=== PATIENT | female | born 1940 | race Asian ===

== ENCOUNTER 2020-08-10 16:17 | Emergency (ER) | payer OTHER ==
[~2020-08-10] VITALS: Ht 152.4 cm; Wt 59.1 kg
[~2020-08-10 16:17] MED LIST: AMLO-257 PO; ASPI81TA39 PO; BIMA12.5OS OU; BRIM15DR8 OU; CALC1CAP22 PO; CARV12 PO; COSO10OS OU; INSU100V SQ; INSU300I SQ; LOSA50TA37 PO; MOM30 PO; MULT-1259 PO; NETA2.5D OU; PRED20 PO; SIMV10TA97 PO; VITA1TAB22 PO
[2020-08-10] MEDS ORDERED: TraMADol HCL 50 MG TABLET PO ONE (17:45)
[2020-08-10 19:17] VITALS: BP 132/71
== END 2020-08-10 19:23 | disposition home or self-care (01) ==
LOC: EMS 16:17
DX: E11.621 Type 2 diabetes mellitus with foot ulcer (principal); E78.00 Pure hypercholesterolemia, unspecified; I10 Essential (primary) hypertension; Z79.4 Long term (current) use of insulin

== ENCOUNTER 2021-04-22 13:45 | Emergency (ER) | payer OTHER ==
[~2021-04-22] VITALS: Ht 154.9 cm; Wt 59.1 kg
[~2021-04-22 13:45] MED LIST changes: -BIMA12.5OS OU; +BIMA2.5D4 OU
[2021-04-22] MEDS ORDERED: VANCOMYCIN HCL 1 GM/D5% WATER 200 ML IV ONE (14:00)
[2021-04-22] MEDS ORDERED: ONDANSETRON HCL 4 MG/2 ML VIAL IVP ONE (14:00)
[2021-04-22] MEDS ORDERED: MORPHINE SULFATE 4 MG/ML SYRINGE IVP ONE (14:00)
[2021-04-22 14:32] LABS: BASOPHILS % (AUTO) 0.4 % (0.0-2.0); EOSINOPHILS % (AUTO) 5.9 % (1.0-6.0); HEMATOCRIT 30.4 % (36-46); HEMOGLOBIN 9.6 g/dL (12.0-16.0); LYMPHOCYTES # (AUTO) 1.8 K/uL (1.0-4.8); LYMPHOCYTES % (AUTO) 21.7 % (22.0-44.0); MEAN CORPUSCULAR HEMOGLOBIN 27.5 pg (26.0-34.0); MEAN CORPUSCULAR HGB CONC 31.8 G/dL (31.0-37.0); MEAN CORPUSCULAR VOLUME 87 fL (80-100); MONOCYTES % (AUTO) 12.2 % (2.0-9.0); NEUTROPHILS # (AUTO) 5.1 K/uL (1.8-7.7); NEUTROPHILS % (AUTO) 59.8 % (40.0-70.0); PLATELET COUNT (AUTO) 214 K/uL (150-450); RED BLOOD CELL COUNT(AUTO) 3.51 MIL/uL (4.00-5.20); RED CELL DISTRIBUTION WIDTH 12.8 % (11.5-14.5)
[2021-04-22 14:54] LABS: COVID AG,FIA SOURCE NASOPHARYNGEAL
[2021-04-22 15:01] LABS: CALCIUM, TOTAL 10.9 mg/dL (8.8-10.5); CREATININE 2.27 mg/dL (0.60-1.30); POTASSIUM 4.1 mmol/L (3.5-5.1)
[2021-04-22 15:06] LABS: ALBUMIN 3.4 g/dL (3.4-5.0); BILIRUBIN,TOTAL 0.1 mg/dL (0.1-1.0); C-REACTIVE PROTEIN QUANT 1.07 mg/dL (0.00-0.30); TOTAL PROTEIN, SERUM 7.7 g/dL (6.4-8.2)
[2021-04-22 15:57] LABS: ERYTHROCYTE SEDIMENTATION RATE 65 MM/HR (0-20)
[2021-04-22 20:34] VITALS: BP 146/63
== END 2021-04-22 20:50 | disposition short-term general hospital (02) ==
LOC: EMS 13:51
DX: E11.621 Type 2 diabetes mellitus with foot ulcer (principal); L97.419 Non-pressure chronic ulcer of right heel and midfoot with unspecified severity; N28.9 Disorder of kidney and ureter, unspecified; I10 Essential (primary) hypertension; E78.00 Pure hypercholesterolemia, unspecified; Z20.822 Contact with and (suspected) exposure to COVID-19; Z79.4 Long term (current) use of insulin; Z79.82 Long term (current) use of aspirin
CPT/HCPCS: 36415; 73630; 80053; 85025; 85651; 86140; 87040; 87426; 96365; 96366; 96375; 99285; J2270; J2405; J3370